=== PATIENT | female | born 2000 | race Caucasian/White ===

== ENCOUNTER 2022-10-05 09:30 | Outpatient (REF) | payer OTHER, SELFPAY ==
--- NOTE | ~2022-10-05 | MR_ITS ---
EXAMINATION: MR ANKLE WITHOUT CONTRAST, LEFT CLINICAL INFORMATION: Left foot and ankle injury. Pain and numbness. Synovitis. COMPARISON: None TECHNIQUE: Multisequence MR imaging of the left ankle was obtained without contrast on a high-field strength scanner. FINDINGS: BONE AND ARTICULAR CARTILAGE: No abnormal marrow signal. No stress reaction, fracture, or dislocation. No concerning lytic or blastic osseous lesion. Intact articular cartilage. No talar osteochondral lesion. ACHILLES TENDON: Intact. OTHER TENDONS: The visualized flexor and extensor tendons are intact. No evidence of tenosynovitis. No measurable tendon tear. LIGAMENTS: Thickening and heterogeneous signal within the anterior and posterior talofibular ligaments consistent with remote sprain/partial tears. No evidence of acute ligament injury. JOINT FLUID AND SOFT TISSUES: Small tibiotalar and posterior subtalar joint effusions. PLANTAR FASCIA: Intact. SINUS TARSI AND TARSAL TUNNEL: Patent. MR/MR ankle LT wo con IMPRESSION: 1. Remote sprain/partial tears of the anterior and posterior talofibular ligaments. No evidence of acute ligament injury. 2. Small tibiotalar and posterior subtalar joint effusions. 3. No acute osseous abnormality. 4. No tendon tear or tenosynovitis.
== END 2022-10-05 09:31 | disposition home or self-care (01) ==
LOC: HO.MRI 09:30
PROVIDERS: Visit Provider Podiatrist
DX: M65.9 Synovitis and tenosynovitis, unspecified (principal)
CPT/HCPCS: 73721

== ENCOUNTER 2023-04-22 07:00 | Outpatient (RCR) | payer OTHER, SELFPAY | END 2023-05-27 09:00 | disposition home or self-care (01) | LOC: HO.PT 07:00 | PROVIDERS: Visit Provider Podiatrist | DX: M65.9 Synovitis and tenosynovitis, unspecified (principal); M25.372 Other instability, left ankle; Z98.890 Other specified postprocedural states | CPT/HCPCS: 97110; 97161 ==